=== PATIENT | male | born 1940 | race Caucasian/White ===

== ENCOUNTER → 2025-03-28 07:52 | Outpatient (REF) | payer MEDICARE, BC, SELFPAY | LOC: RCS 07:52 | PROVIDERS: ATTENDING PHYSICIAN Internal Medicine Cardiovascular Disease; FAMILY PHYSICIAN Internal Medicine | DX: R06.09 Other forms of dyspnea (principal); I42.8 Other cardiomyopathies | CPT/HCPCS: 78452; 93017; A9500; J2785 ==